=== PATIENT | male | born 1970 | race Caucasian/White ===

== ENCOUNTER 2018-07-01 07:21 | Day surgery (SDC) | payer BC ==
[2018-06-30 12:30] VITALS: BMI 32.5
[2018-07-01] MEDS ORDERED: DEXAMETHASONE SOD PHOSPHATE/PF 10 MG/ML SDV ONE (08:34)
[2018-07-01] MEDS ORDERED: ROPIVACAINE HCL 0.5% 30ML VIAL ONE (08:34)
[2018-07-01] MEDS ORDERED: MIDAZOLAM HCL 2 MG/2 ML SINGLE DOSE VIAL ONE ×2 (08:34→08:43)
[2018-07-01] MEDS ORDERED: PROPOFOL 20 ML ONE (08:43)
[2018-07-01] MEDS ORDERED: ROCURONIUM BROMIDE 50 MG/5 ML VIAL ONE ×2 (08:44→09:33)
[2018-07-01] MEDS ORDERED: fentaNYL CITRATE 250 MCG/5 ML VIAL ONE ×2 (09:33→10:37)
[2018-07-01] MEDS ORDERED: ceFAZolin SODIUM 1 GM VIAL ONE (10:25)
[2018-07-01] MEDS ORDERED: LIDOCAINE HCL/PF 2% SDV 5ML VIAL ONE (10:25)
[2018-07-01] MEDS ORDERED: DEXAMETHASONE SOD PHOSPHATE 4 MG/1 ML VIAL ONE (10:25)
[2018-07-01] MEDS ORDERED: KETOROLAC TROMETHAMINE 30 MG/1 ML VIAL ONE (10:25)
[2018-07-01 12:41] VITALS: BP 107/73; PULSE 64; TEMP 98
--- NOTE | 2018-07-01 14:10 | OP ---
DATE OF OPERATION: 07/01/2018 SITE: [facility]. SURGEON: Grace Katz MD ASSISSTANT: HECTOR Tadeo PREOPERATIVE DIAGNOSIS: Left midshaft clavicle fracture, displaced. POSTOPERATIVE DIAGNOSIS: Left midshaft clavicle fracture, displaced. PROCEDURE: Open reduction, internal fixation of left clavicle fracture. FINDINGS: Midshaft clavicle fracture with butterfly fragment, spiral fracture. REPAIR TYPE: A 6-hole Acumed Plate was placed across the fracture site with filling the 1st, 2nd, 5th, and 6th screws. The interfrag screws were treated with FiberWire, bringing the butterfly fragment into compression. DESCRIPTION OF PROCEDURE: Informed consent was obtained. The patient was taken to the operating room where the left upper extremity was prepped and draped in a sterile fashion up to the neck. C-arm fluoroscopy was used to center the area of the fracture. Incision was made approximately 10 cm in length over the area of the fracture. Trapezius was incised, and the medial and lateral fragments were identified. The butterfly fragment was also found. A reduction clamp was placed, and a 6-hole Acumed plate was initially placed on the medial side and then clamped to the lateral side. This showed a good reduction of the fracture. Screws using AO technique, screws were placed in the 1st, 2nd, 5th, and 6th screws going through bicortical fixation. The butterfly fragment remained attached to its soft tissue component and the drill hole was placed through the center and tied in using No. 2 FiberWire into the central portion of the clavicle. Throughout, this wound was irrigated with copious amounts of irrigation. A 0 Vicryl running trapezial fascial, so this was placed over the area, followed by 2-0 Vicryl and 3-0 running Prolene. Sterile dressing was placed. The patient was transferred to recovery without complication. Patient was placed in a sling. GRACE KATZ M.D. [id number]
== END 2018-07-01 13:20 | disposition home or self-care (01) ==
LOC: FASU 07:21
PROVIDERS: ATTEND Orthopaedic Surgery
PROC: 0PSB04Z Reposition Left Clavicle with Internal Fixation Device, Open Approach (ICD-10-PCS; principal; 2018-07-01 10:37)
DX: S42.022A Displaced fracture of shaft of left clavicle, initial encounter for closed fracture (principal); X58.XXXA Exposure to other specified factors, initial encounter; Y93.9 Activity, unspecified; Y92.9 Unspecified place or not applicable
CPT/HCPCS: 73000-TC-LT-FY; 94760